=== PATIENT | male | born 1970 | race Caucasian/White ===

== ENCOUNTER 2016-06-08 10:42 | Day surgery (SDC) | payer OTHER ==
[2016-06-01 14:41] VITALS: BMI 40.0
[2016-06-08] MEDS ORDERED: BUPIVACAINE HCL/PF 2.5 MG/ML - 30 ML VIAL IJ ONE (10:47)
[2016-06-08] MEDS ORDERED: BUPIVACAINE HCL/PF 0.5% (5MG/ML) 10 ML VIAL ONE (10:59)
[2016-06-08] MEDS ORDERED: MIDAZOLAM HCL 2 MG/2 ML SINGLE DOSE VIAL ONE ×2 (11:14→15:22)
[2016-06-08] MEDS ORDERED: PROPOFOL 20 ML ONE ×2 (17:11→17:30)
[2016-06-08] MEDS ORDERED: ceFAZolin SODIUM 1 GM VIAL ONE ×2 (17:13)
[2016-06-08] MEDS ORDERED: oxyCODONE HCL 5 MG TABLET PO PRN (19:15)
[2016-06-08 20:19] VITALS: TEMP 97.9
[2016-06-08 20:24] VITALS: BP 137/68; PULSE 80
--- NOTE | 2016-06-10 11:40 | PATH ---
Surgical Pathology Report Patient Name: DEE MURRELL [facility]. Rec. #: [id number] /Age/Gender: 1970 (Age: 46) / M Account: [id number] Location: [facility] Taken: 06/08/2016 Received: 06/08/2016 Reported: 06/10/2016 Physicians: Charlie Garcia M.D. Specimen(s) Received RIGHT SHOULDER SHAVINGS Clinical History Right shoulder labral tear Final Diagnosis RIGHT SHOULDER, ARTHROSCOPIC SHAVINGS: FIBROCARTILAGE WITH MYXOID DEGENERATIVE CHANGES. Electronically Signed Rey Durbin M.D. Gross Description Received in formalin, labeled "right shoulder shavings," is a 1.0 x 0.6 x 0.2 cm aggregate of martínez soft tissue fragments. The formalin is filtered and the specimen is entirely submitted in one cassette. /06/09/201606/09/2016
--- NOTE | 2016-06-12 12:43 | OP ---
DATE OF OPERATION: 06/08/2016 PREOPERATIVE DIAGNOSIS: Right shoulder rotator cuff tear and labral tear. POSTOPERATIVE DIAGNOSIS: 1. Right shoulder superior labral anteroposterior (SLAP) tear type 2. 2. Right partial-thickness undersurface supraspinatus tear. 3. Right shoulder synovitis and labral tearing and subscapularis partial-thickness tear. 4. Right shoulder severe subacromial bursitis and anterior inferior spur with impingement. OPERATIVE PROCEDURES: 1. Right shoulder arthroscopy with repair of SLAP (superior labral anteroposterior) lesion. 2. Arthroscopic right shoulder extensive debridement, with debridement of rotator cuff tear and synovitis. 3. Right shoulder arthroscopic subacromial decompression and anterior inferior acromioplasty. SURGEON: Charlie Garcia MD BINDER LAYER: BRADLEY Wells ANESTHESIA: Regional. COMPLICATIONS: None. ESTIMATED BLOOD LOSS: Minimal. INDICATION FOR PROCEDURE: The patient is a 46-year-old male with the above findings, indicated for operative treatment. Risks, benefits and alternatives were discussed with the patient at length and proper informed consent was obtained. PROCEDURE: After proper identification of patient and correct operative site, patient brought to operating room and placed in the beach chair position. Regional anesthesia had been given by the anesthesiologist and adequate for procedure. All points of contact were well padded and in-line cervical positioning was maintained throughout the procedure. Right upper extremity was prepped and draped in the usual sterile fashion. Arthroscopy was then performed. Both posterior, lateral, and anterior superior portals were made. All portals were made in skin incision only and blunt dissection down to the joint capsule. The glenohumeral joint was observed first and found to have very mild chondromalacia. Significant fraying of the anterior and superior labrum was noted and this was debrided with mechanical shaver. A complete detachment of the superior labrum at the biceps anchor was noted from the 11 o'clock to the 2 o'clock position. Positive peel-off test was present. The biceps tendon itself was intact with mild fraying in the intraarticular portion, which was debrided. Extraarticular portion was brought into the joint and yellowish fluid came into the joint consistent with a biceps tenosynovitis, however, there was no tearing of the biceps tendon in the extraarticular portion that was able to be brought into the joint. Mild fraying at the most superior aspect of the extraarticular portion was debrided with mechanical shaver. There was no indication for a tenodesis or a tenotomy at this point due to the vast majority of the tendon being in good condition. The superior border of the subscapularis tendon had fraying and this was debrided but the tendon was intact. Moderate synovitis of the glenohumeral joint was noted and debrided with mechanical shaver. The rotator cuff was observed and there was tendinosis and partial-thickness tearing of the most anterior 1 cm. This was debrided with mechanical shaver and found to be less than 50% of the thickness of the rotator cuff. There was no evidence of full-thickness tear except for possible mild interval splitting, which could account for the MRI findings. The remainder of the supraspinatus and infraspinatus were completely intact. There were no loose bodies within the axillary pouch. At this point it was determined that a superior labral repair was necessary. Accessory portals were used to place Arthrex FiberStick sutures through the superior labrum both anterior and posterior to the biceps tendon insertion. These were then secured to the superior glenoid after preparing the glenoid with a shaver down to healthy bleeding bone to accommodate repair, and the labrum was repaired to the glenoid with PushLock anchors. Two total anchors were used, obtaining a secure repair with no further peel-off lesion present. Arthroscope was then introduced in the subacromial space. The space was so tight that it was almost impossible to fit the arthroscope into the anterior aspect of the space. A shaver and ArthroWand were used to clear severe bursitis from the subacromial space. A very large anterior inferior subacromial spur was noted. An anterior inferior acromioplasty was performed with a bur. This was able to achieve adequate space and prevent impingement. Mild fraying of the superior aspect of the rotator cuff was noted but no tearing was noted. The arthroscope was then removed from the joint and the joints were irrigated and incisions were closed with 2-0 nylon sutures. Sterile dressing, ice machine and sling were placed. The patient was reversed from any sedation, brought to the recovery room in stable condition. He tolerated the procedure well. Edgar Brambila, the medical assistant secretary, was integral throughout this procedure, and this procedure could not have been performed without a skilled arthroscopic operative medical assistant secretary. Due to the nature of arthroscopic labral repair, 3 or 4 arthroscopically skilled hands were necessary to complete the repair, where 1 person was holding an arthroscope in appropriate position and positioning it while the other person was performing the repair. The medical assistant secretary could not have been a surgical aide and no other assistants were available. Betsey ABREU/[id number]
== END 2016-06-08 20:15 | disposition home or self-care (01) ==
LOC: FASU 10:42
PROVIDERS: ATTEND Orthopaedic Surgery Hand Surgery
PROC: 0RNJ4ZZ Release Right Shoulder Joint, Percutaneous Endoscopic Approach (ICD-10-PCS; 2016-06-08)
PROC: 0RBJ4ZZ Excision of Right Shoulder Joint, Percutaneous Endoscopic Approach (ICD-10-PCS; 2016-06-08)
PROC: 0MM14ZZ Reattachment of Right Shoulder Bursa and Ligament, Percutaneous Endoscopic Approach (ICD-10-PCS; principal; 2016-06-08 12:30)
PROC: 0LB14ZZ Excision of Right Shoulder Tendon, Percutaneous Endoscopic Approach (ICD-10-PCS; 2016-06-08 12:30)
DX: M75.121 Complete rotator cuff tear or rupture of right shoulder, not specified as traumatic (principal); S43.431A Superior glenoid labrum lesion of right shoulder, initial encounter; X58.XXXA Exposure to other specified factors, initial encounter; Y93.9 Activity, unspecified; Y92.9 Unspecified place or not applicable; M65.811 Other synovitis and tenosynovitis, right shoulder; M75.51 Bursitis of right shoulder; M77.8 Other enthesopathies, not elsewhere classified; M75.41 Impingement syndrome of right shoulder
CPT/HCPCS: 88304-TC; 94760

== ENCOUNTER 2016-09-14 14:38 | Emergency (ER) | payer OTHER ==
[2016-09-14 15:04] VITALS: BP 141/84; PULSE 81; TEMP 98; BMI 37.1
[2016-09-14] MEDS ORDERED: ONDANSETRON *ODT* 4 MG TABLET ONE (15:14)
[2016-09-14] MEDS ORDERED: ONDANSETRON *ODT* 4 MG TABLET SL ONE (15:15)
[2016-09-14] MEDS ORDERED: diazePAM 5 MG TABLET PO ONE (15:15)
[2016-09-14] MEDS ORDERED: diazePAM 5 MG TABLET ONE (15:15)
--- NOTE | 2016-09-14 15:26 | PDOC ---
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 HISTORY OF PRESENT ILLNESS: The patient was stabilizing an individual's arm in the ER prior to blood draw when the individual began shaking. The patient states he had to reach slightly with his right arm and immediately his right shoulder went into spasm. He states he is currently nauseous. He states the same thing happened last week. REVIEW OF SYSTEMS: GENERAL/CONSTITUTIONAL: No fever/chills. No weakness. No weight change. MUSCULOSKELETAL: +right shoulder pain and spasm. No neck or back pain. SKIN: No rash or easy bruising. NEUROLOGIC: No headache, vertigo, loss of consciousness, or loss of sensation. PHYSICAL EXAM: VITAL_SIGNS: within normal limits GENERAL_APPEARANCE: alert, cooperative, obvious severe pain. the patient's face is erythematous and diaphoretic secondary to pain. Pt is holding his right elbow in flexed position against his chest. MENTAL_STATUS: speech clear, oriented X 3, responds appropriately to questions. NEURO: motor intact and sensory intact in injured extremity. EXTREMITIES: Right shoulder with muscle spasm and extreme TTP. SKIN: warm, dry, good color. Past History - Past Medical History Allergies/Adverse Reactions: Allergies Allergy/AdvReac Type Severity Reaction Status Date / Time meperidine HCl [From Demerol] Allergy Unknown Verified 09/14/16 14:56 Home Medications: Ambulatory Orders Naproxen [Naprosyn -] 500 mg PO BID PRN #14 tablet 05/07/16 Atorvastatin Calcium [Lipitor] 10 mg PO DAILY 06/01/16 Metformin HCl 500 mg PO DAILY 06/01/16 Paroxetine HCl 60 mg PO DAILY 06/01/16 Valsartan/Hydrochlorothiazide [Valsartan-Hctz 320-12.5 mg Tab] 1 tab PO DAILY Oxycodone HCl/Acetaminophen [Percocet 5-325 mg Tablet] 1 - 2 tab PO Q6H #8 tab MDD 6 09/14/16 Anemia: No Asthma: No Cancer: No Cardiac Disorders: No CVA: No COPD: No CHF: No Dementia: No Diabetes: No (borderline) GI Disorders: No Disorders: No HTN: Yes Hypercholesterolemia: Yes Liver Disease: No Seizures: No Thyroid Disease: No - Surgical History Abdominal Surgery: No Appendectomy: No Cardiac Surgery: No Cholecystectomy: No Lung Surgery: No Neurologic Surgery: No Orthopedic Surgery: No - Immunization History Immunization Up to Date: Yes - Psycho/Social/Smoking Cessation Hx Anxiety: No Suicidal Ideation: No Smoking History: Never smoked Have you smoked in the past 12 months: No Information on smoking cessation initiated: No Hx Alcohol Use: No Drug/Substance Use Hx: No Substance Use Type: None Hx Substance Use Treatment: No *Physical Exam - Vital Signs Last Vital Signs Temp Pulse Resp BP Pulse Ox 98.0 F 81 19 141/84 86 L 09/14/16 14:52 09/14/16 14:52 09/14/16 14:52 09/14/16 14:52 09/14/16 14:52 ED Treatment Course - Medications Given in the ED: ED Medications Discontinued Medications Generic Name Dose Route Start Last Admin Trade Name Dakotaq PRN Reason Stop Dose Admin Diazepam 10 mg 09/14/16 15:15 09/14/16 15:18 Valium - PO 09/14/16 15:16 10 mg ONCE ONE Administration Ondansetron HCl 4 mg 09/14/16 15:15 09/14/16 15:18 Zofran Odt - SL 09/14/16 15:16 4 mg ONCE ONE Administration Medical Decision Making - Medical Decision Making A/P: 46 y/o afebrile male with right shoulder spasm. Plan is as follows: 1. SL zofran 2. PO valium 3. Sling Pt still in pain. Ordered PO Percocet. Pt states he now feels much better but still with some pain. Will discharge to home with rx for percocet - informed him it may cause drowsiness. Suggested he ice as often as possible, use sling for comfort and f/u with his Orthopedic doctor as soon as possible. Pt was instructed to return to the ER with any worsening or concerning symptoms. The patient verbalizes understanding of all instructions, has no further questions and is awaiting discharge. *DC/Admit/Observation/Transfer Diagnosis at time of Disposition: Muscle spasm of right shoulder Right shoulder injury Qualifiers: Encounter type: subsequent encounter Qualified Code(s): S49.91XD - Unspecified injury of right shoulder and upper arm, subsequent encounter - Discharge Dispostion Disposition: HOME Condition at time of disposition: Improved - Prescriptions Prescriptions: Oxycodone HCl/Acetaminophen [Percocet 5-325 mg Tablet] 1 - 2 tab PO Q6H #8 tab MDD 6 - Referrals Referrals: STAFF,NOT ON [Primary Care Provider] - - Patient Instructions Printed Discharge Instructions: How to Use a Sling, DI for Back Spasm Additional Instructions: Discharge Instructions: -Continue to ice your shoulder for pain relief -Use sling as needed for comfort -Take percocet for pain; may cause drowsiness -Follow up with your Orthopedic doctor as soon as possible -Return to the ER with any worsening or concerning symptoms - Post Discharge Activity Work/School Note: Back to Work
[2016-09-14] MEDS ORDERED: OXYCODONE/APAP 5/325MG COMBO TABLET PO ONE (15:38)
[2016-09-14] MEDS ORDERED: OXYCODONE/APAP 5/325MG COMBO TABLET ONE (15:40)
== END 2016-09-14 16:28 | disposition home or self-care (01) ==
LOC: SUPCPDRO 14:38 → JERFT 14:38
DX: S49.81XA Other specified injuries of right shoulder and upper arm, initial encounter (principal); M62.838 Other muscle spasm; X50.0XXA Overexertion from strenuous movement or load, initial encounter; X50.9XXA Other and unspecified overexertion or strenuous movements or postures, initial encounter; Y93.F9 Activity, other caregiving; Y92.238 Other place in hospital as the place of occurrence of the external cause; Y99.0 Civilian activity done for income or pay
CPT/HCPCS: 99281-25

== ENCOUNTER 2018-05-25 12:14 | Emergency (ER) | payer OTHER ==
[2018-05-25] MEDS ORDERED: KETOROLAC TROMETHAMINE 30 MG/1 ML VIAL IM ONE (12:17)
--- NOTE | 2018-05-25 12:17 | PDOC ---
History of Present Illness - General Chief Complaint: Injury Stated Complaint: BACK PAIN Time Seen by Provider: 05/25/18 12:16 - History of Present Illness Initial Comments: 05/25/18 12:29 48 y/o PMH HTN, HLD, DM, right rotator cuff injury, presents to the emergency department status post a mechanical fall on . Patient was seated in a chair the floor was wet the chair slipped from under him he landed on his buttocks. He did not injure his buttock or lower back but is complaining of progressively worsening moderate to severe right upper back discomfort feels like a muscle is spasming No difficulty breathing no chest pain no weakness numbness bowel or bladder incontinence no other injury sustained. Past History - Past Medical History Allergies/Adverse Reactions: Allergies Allergy/AdvReac Type Severity Reaction Status Date / Time meperidine HCl [From Demerol] Allergy Unknown Verified 05/25/18 12:15 Home Medications: Ambulatory Orders Atorvastatin Calcium [Lipitor] 20 mg PO DAILY 06/01/16 Diazepam [Valium] 5 mg PO BID PRN 3 Days #6 tablet MDD 2 05/25/18 Methylprednisolone [Medrol Dose Benson] 4 mg PO ASDIR #21 tablet 05/25/18 Valsartan 40 mg PO HS 05/25/18 Anemia: No Asthma: No Cancer: No Cardiac Disorders: No CVA: No COPD: No CHF: No Dementia: No Diabetes: No (borderline) GI Disorders: No Disorders: No HTN: Yes Hypercholesterolemia: Yes Liver Disease: No Seizures: No Thyroid Disease: No - Surgical History Abdominal Surgery: No Appendectomy: No Cardiac Surgery: No Cholecystectomy: No Lung Surgery: No Neurologic Surgery: No Orthopedic Surgery: No - Immunization History Immunization Up to Date: Yes - Suicide/Smoking/Psychosocial Hx Smoking History: Never smoked Have you smoked in the past 12 months: No Hx Alcohol Use: No Drug/Substance Use Hx: No Substance Use Type: None Hx Substance Use Treatment: No Review of Systems - Review of Systems Comments:: 05/25/18 12:34 ROS: A complete review of 10 out of 10 review of systems is taken and is negative apart from what is previously mentioned below and in the HPI. *Physical Exam - Physical Exam Comments: 05/25/18 12:35 Vitals: Triage Vital signs reviewed General Appearance: no acute distress, well nourished well developed, Head: Atraumatic, Neck: Supple;No Nucal rigidity Chest Wall: Nontender Cardiac: Regular rate and rhythym, no murmurs, no rubs, no gallops, Lungs: Clear to auscultation bilateral, good air movement bilaterally, Extremities: Full range of motion to all extremities, no cyanosis, clubbing, or edema Musculoskeletal: No midline tenderness to palpation along the cervical thoracic and lumbar spine. Reproducible tenderness to palpation over the midthoracic to the right muscular in nature Skin: Warm and dry, no rashes or lesions, no rash, no petechiae Neuro: AOX3; Cranial Nerves 2-12 grossly intact, Strength intact to all extremities, Sensation intact to all extremities,gait normal Psych: normal mood, normal affect Medical Decision Making - Medical Decision Making 05/25/18 12:36 Severe upper back pain likely spasm we'll x-ray pain meds observe and reassess. 05/25/18 13:28 Reevaluation patient feels better. No acute fracture dislocation noted on x-ray We'll discharge Medrol Dosepak and three-day course of Valium Patient will follow up with orthopedics if no improvement in symptoms by Monday Findings, the need for follow-up and strict return instructions discussed with patient. *DC/Admit/Observation/Transfer Diagnosis at time of Disposition: Muscle strain - Discharge Dispostion Disposition: HOME Condition at time of disposition: Stable Decision to Admit order: No - Prescriptions Prescriptions: Diazepam [Valium] 5 mg PO BID PRN 3 Days #6 tablet MDD 2 PRN Reason: Back Pain Methylprednisolone [Medrol Dose Benson] 4 mg PO ASDIR #21 tablet - Referrals Referrals: Julia Barnes MD [Primary Care Provider] - Dereje Wilson MD [Staff Physician] - - Patient Instructions Printed Discharge Instructions: Thoracic Back Pain Additional Instructions: Ice affected area 20 minutes on 20 minutes off. Medrol Dosepak as prescribed. Valium as prescribed. Do not drive on this medication. Follow-up with your orthopedist or with if no improvement in symptoms. Return to ED for any severe worsening symptoms any weakness numbness or for any concerns. - Post Discharge Activity Forms/Work/School Notes: Back to Work
[2018-05-25] MEDS ORDERED: diazePAM 5 MG TABLET PO ONE (12:18)
[2018-05-25 12:20] VITALS: BP 153/100; PULSE 91; TEMP 98; BMI 40.3
[2018-05-25] MEDS ORDERED: diazePAM 5 MG TABLET ONE (12:23)
[2018-05-25] MEDS ORDERED: KETOROLAC TROMETHAMINE 30 MG/1 ML VIAL ONE (12:23)
== END 2018-05-25 13:45 | disposition home or self-care (01) ==
LOC: FER 12:14 → SUPCPDRO 12:14 → FER 13:45
PROC: 3E0233Z Introduction of Anti-inflammatory into Muscle, Percutaneous Approach (ICD-10-PCS; principal; 2018-05-25)
DX: S29.012A Strain of muscle and tendon of back wall of thorax, initial encounter (principal); X58.XXXA Exposure to other specified factors, initial encounter; Y93.89 Activity, other specified; Y92.89 Other specified places as the place of occurrence of the external cause; I10 Essential (primary) hypertension; E78.00 Pure hypercholesterolemia, unspecified; R73.03 Prediabetes
CPT/HCPCS: 71046-TC-FY; 72070-TC-FY; 99282-25

== ENCOUNTER 2019-02-28 13:34 | Emergency (ER) | payer OTHER ==
[2019-02-28 13:40] VITALS: BMI 35.2
[2019-02-28] MEDS ORDERED: ACETAMINOPHEN 1000 MG/100 ML VIAL (NON FORMULARY) IVPB ONE (13:42)
[2019-02-28] MEDS ORDERED: SODIUM CHLORIDE 1,000 ML IV STA (13:42)
[2019-02-28] MEDS ORDERED: ONDANSETRON 4 MG/2 ML VIAL IVPUSH ONE (13:42)
[2019-02-28] MEDS ORDERED: KETOROLAC TROMETHAMINE 30 MG/1 ML VIAL IVPUSH ONE (13:43)
--- NOTE | 2019-02-28 13:48 | PDOC ---
History of Present Illness - General Chief Complaint: Back Pain Stated Complaint: BACK PAIN Time Seen by Provider: 02/28/19 13:38 History Source: Patient Exam Limitations: No Limitations Past History - Travel Traveled outside of the country in the last 30 days: No Close contact w/someone who was outside of country & ill: No - Past Medical History Allergies/Adverse Reactions: Allergies Allergy/AdvReac Type Severity Reaction Status Date / Time meperidine HCl [From Demerol] Allergy Unknown Verified 02/28/19 13:36 Home Medications: Ambulatory Orders Atorvastatin Calcium [Lipitor] 20 mg PO DAILY 06/01/16 Diazepam [Valium] 5 mg PO BID PRN 3 Days #6 tablet MDD 2 05/25/18 Methylprednisolone [Medrol Dose Benson] 4 mg PO ASDIR #21 tablet 05/25/18 Valsartan 40 mg PO HS 05/25/18 Diazepam [Valium] 5 mg PO BID #10 tablet MDD 2 02/28/19 Diazepam [Valium] 5 mg PO BID #10 tablet MDD 2 02/28/19 Naproxen 500 mg PO BID #20 tablet 02/28/19 Naproxen [Naprosyn -] 500 mg PO BID #20 tablet 02/28/19 Anemia: No Asthma: No Cancer: No Cardiac Disorders: No CVA: No COPD: No CHF: No Dementia: No Diabetes: No (borderline) GI Disorders: No Disorders: No HTN: Yes Hypercholesterolemia: Yes Liver Disease: No Seizures: No Thyroid Disease: No - Surgical History Abdominal Surgery: No Appendectomy: No Cardiac Surgery: No Cholecystectomy: No Lung Surgery: No Neurologic Surgery: No Orthopedic Surgery: No - Immunization History Immunization Up to Date: Yes - Psycho Social/Smoking Cessation Hx Smoking History: Never smoked Have you smoked in the past 12 months: No Information on smoking cessation initiated: No Hx Alcohol Use: No Drug/Substance Use Hx: No Substance Use Type: None Hx Substance Use Treatment: No Review of Systems - Review of Systems Able to Perform ROS?: Yes Comments:: 02/28/19 14:05 CONSTITUTIONAL: Absent: fever, chills, diaphoresis, generalized weakness, malaise, loss of appetite HEENT: Absent: rhinorrhea, nasal congestion, throat pain, throat swelling, difficulty swallowing, mouth swelling, ear pain, eye pain, visual Changes CARDIOVASCULAR: Absent: chest pain, loss of consciousness, palpitations, irregular heart rate, peripheral edema RESPIRATORY: Absent: cough, shortness of breath, dyspnea with exertion, orthopnea, wheezing, stridor, hemoptysis GASTROINTESTINAL: Absent: abdominal pain, abdominal distension, nausea, vomiting, diarrhea, constipation, melena, hematochezia GENITOURINARY: Present: flank pain Absent: dysuria, frequency, urgency, hesitancy, hematuria, genital pain MUSCULOSKELETAL: Present: lower back pain Absent: myalgia, arthralgia, joint swelling SKIN: Absent: rash, itching, pallor HEMATOLOGIC/IMMUNOLOGIC: Absent: easy bleeding, easy bruising, lymphadenopathy, frequent infections ENDOCRINE: Absent: unexplained weight gain, unexplained weight loss, heat intolerance, cold intolerance NEUROLOGIC: Absent: headache, focal weakness or paresthesias, dizziness, unsteady gait, seizure, mental status changes, bladder or bowel incontinence PSYCHIATRIC: Absent: anxiety, depression, suicidal or homicidal ideation, hallucinations. Is the patient limited Brazilian proficient: No *Physical Exam - Vital Signs Last Vital Signs Temp Pulse Resp BP Pulse Ox 98.2 F 95 H 16 164/111 H 97 02/28/19 13:37 02/28/19 13:37 02/28/19 13:37 02/28/19 13:37 02/28/19 13:37 - Physical Exam Comments: 02/28/19 14:08 GENERAL: Well developed, well nourished. Awake and alert. Mild distress; appears uncomfortable. HEENT: Normocephalic, atraumatic. PERRLA, EOMI. No conjunctival pallor. Sclera are non- icteric. Moist mucous membranes. Oropharynx is clear. NECK: Supple. Full ROM. No JVD. Carotid pulses 2+ and symmetric, without bruits. No thyromegaly. No lymphadenopathy. CARDIOVASCULAR: Regular rate and rhythm. No murmurs, rubs, or gallops. Distal pulses are 2+ and symmetric. PULMONARY: No evidence of respiratory distress. Lungs clear to auscultation bilaterally. No wheezing, rales or rhonchi. ABDOMINAL: Soft. Non-tender. Non-distended. No rebound or guarding. No organomegaly. Normoactive bowel sounds. MUSCULOSKELETAL Normal range of motion at all joints. No bony deformities or tenderness. (+) R CVA tenderness. EXTREMITIES: No cyanosis. No clubbing. No edema. No calf tenderness. SKIN: Warm and dry. Normal capillary refill. No rashes. No jaundice. NEUROLOGICAL: Alert, awake, appropriate. Cranial nerves 2-12 intact. No deficits to light touch and temperature in face, upper extremities and lower extremities. No motor deficits in the in face, upper extremities and lower extremities. Normoreflexic in the upper and lower extremities. Normal speech. Toes are down- going bilaterally. Gait is normal without ataxia. PSYCHIATRIC: Cooperative. Good eye contact. Appropriate mood and affect. ED Treatment Course - LABORATORY CBC & Chemistry Diagram: 02/28/19 14:00 02/28/19 14:00 Medical Decision Making - Medical Decision Making 02/28/19 14:09 The patient is a 48-year-old male past medical history of HTN, HLD, kidney stones, right rotator cuff repair, chronic low back pain, presents to the ER today for right-sided back pain for 3 days. The patient states that the pain is intermittent and colicky. He states that the pain does come it is sharp in nature. He states this does not feel like his usual back pain as he cannot massage the area. He states that it does get worse with movement denies inciting factors including heavy lifting, trauma. Denies fevers, chills, urinary symptoms, nausea, vomiting, chest pain and lightheadedness. A/P: Right flank pain On exam patient with right CVA tenderness. Also with some right lower abdominal pain, patient states that this is radiating from the back pain/flank pain. Differential diagnosis includes but is not limited to: Kidney stone, muscle spasms Labs, urine and CTAP renal to rule out kidney stones ordered EKG ordered After meth, Toradol and fluids given Reevaluate 02/28/19 17:16 EKG: Rate 78 bpm NSR, normal intervals and axis. No acute ST-T wave changes. Scan is negative for kidney stones Most likely upper back spasm. Toradol and aftermath did help with the symptoms. Valium and lidocaine patch added on. Patient denies saddle anesthesia and bladder bowel incontinence. Patient is neurologically intact with no focal findings. Discharge home with PCP follow-up I discussed the physical exam findings, ancillary test results and final diagnoses with the patient. I answered all of the patient's questions. The patient was satisfied with the care received and felt comfortable with the discharge plan and treatment plan. The Patient agrees to follow up with the primary care physician/specialist within 24-72 hours. Return precautions were given. Discharge - Discharge Information Problems reviewed: Yes Clinical Impression/Diagnosis: Low back pain Qualifiers: Chronicity: acute Back pain laterality: right Sciatica presence: without sciatica Qualified Code(s): M54.5 - Low back pain Condition: Good Disposition: HOME - Admission No - Additional Discharge Information Prescriptions: Diazepam [Valium] 5 mg PO BID #10 tablet MDD 2 Diazepam [Valium] 5 mg PO BID #10 tablet MDD 2 Naproxen 500 mg PO BID #20 tablet Naproxen [Naprosyn -] 500 mg PO BID #20 tablet - Follow up/Referral Referrals: Julia Barnes MD [Primary Care Provider] - - Patient Discharge Instructions Patient Printed Discharge Instructions: DI for Low Back Pain Additional Instructions: You have low back pain due to a muscle spasm. Please take naproxen as directed. Take the Valium as directed. Do not drive after taking this medication as it may make you sleepy. You may use warm compresses on your back to help with her symptoms. Please follow-up with your primary care doctor. If your symptoms do not resolve in 3-5 days, follow-up with orthopedics. A referral has been provided for you. Return to the emergency department if you have worsening back pain, bladder or bowel incontinence, numbness and tingling in her legs, changes in the way you walk, or any new or worsening symptoms. - Post Discharge Activity Work/Back to School Note: Back to Work
[2019-02-28] MEDS ORDERED: ONDANSETRON 4 MG/2 ML VIAL ONE (13:50)
[2019-02-28] MEDS ORDERED: KETOROLAC TROMETHAMINE 30 MG/1 ML VIAL ONE (13:50)
[2019-02-28] MEDS ORDERED: ACETAMINOPHEN INJECTION 100 ML IVPB ONE (13:53)
[2019-02-28] MEDS ORDERED: LIDOCAINE 5% TOPICAL PATCH TP ONE (14:29)
[2019-02-28] MEDS ORDERED: diazePAM CARPU-JECT 10 MG/2 ML DISP.SYRIN IVPUSH ONE (14:29)
[2019-02-28] MEDS ORDERED: diazePAM CARPU-JECT 10 MG/2 ML DISP.SYRIN ONE (14:35)
[2019-02-28] MEDS ORDERED: LIDOCAINE 5% TOPICAL PATCH ONE (14:36)
[2019-02-28 15:10] LABS: BASO % 0.6 % (0-2.0); EOS % 3.1 % (0-4.5); LYMPH % 37.5 % (8-40); MCHC 33.4 g/dl (32.0-35.9); MEAN CELL VOLUME 95.8 fl (80-96); MEAN PLT VOLUME 9.5 fl (7.5-11.1); MONO % 5.6 % (3.8-10.2); NEUT % 53.2 % (42.8-82.8); PLATELET COUNT 174 K/MM3 (134-434); RBC 5.01 M/mm3 (4.00-5.60); WHITE BLOOD COUNT 7.3 K/mm3 (4.0-10.0)
[2019-02-28 15:14] LABS: URINE APPEARANCE CLEAR; URINE BILIRUBIN NEGATIVE (NEGATIVE); URINE COLOR YELLOW; URINE GLUCOSE (UA) NEGATIVE (NEGATIVE); URINE KETONE NEGATIVE (NEGATIVE); URINE LEUK ESTERASE NEGATIVE (NEGATIVE); URINE NITRITE NEGATIVE (NEGATIVE); URINE PROTEIN NEGATIVE (NEGATIVE); URINE UROBILINOGEN 0.2 mg/dL (0.2-1.0)
[2019-02-28 15:18] LABS: INR 1.07 (0.83-1.09); PROTHROMBIN TIME (PATIENT) 12.6 SEC (9.7-13.0)
[2019-02-28 15:27] VITALS: BP 146/81; PULSE 81; TEMP 98.3
[2019-02-28 15:31] LABS: BILIRUBIN,TOTAL 0.6 mg/dL (0.2-1); BLOOD UREA NITROGEN 17.3 mg/dL (7-18); CALCIUM 9.8 mg/dL (8.5-10.1); CREATININE 0.7 mg/dL (0.55-1.3); POTASSIUM 4.2 mmol/L (3.5-5.1); TOT PROT 7.5 g/dl (6.4-8.2)
--- NOTE | 2019-03-01 14:33 | EKG ---
Test Reason : Blood Pressure : / mmHG Vent. Rate : 078 BPM Atrial Rate : 078 BPM P-R Int : 142 ms QRS Dur : 088 ms QT Int : 352 ms P-R-T Axes : 017 -28 006 degrees QTc Int : 401 ms NORMAL SINUS RHYTHM MINIMAL VOLTAGE CRITERIA FOR LVH, MAY BE NORMAL VARIANT SEPTAL INFARCT , AGE UNDETERMINED LEFT AXIS DEVIATION ABNORMAL ECG NO PREVIOUS ECGS AVAILABLE Confirmed by ASHTYN ZAMORA MD ([id number]) on 03/01/2019 2:33:33 PM Referred By: Confirmed By:ASHTYN ZAMORA MD
== END 2019-02-28 15:56 | disposition home or self-care (01) ==
LOC: JER 13:34 → JERFT 13:34
PROC: 3E0337Z Introduction of Electrolytic and Water Balance Substance into Peripheral Vein, Percutaneous Approach (ICD-10-PCS; principal; 2019-02-28)
PROC: 3E033NZ Introduction of Analgesics, Hypnotics, Sedatives into Peripheral Vein, Percutaneous Approach (ICD-10-PCS; 2019-02-28)
PROC: 3E0333Z Introduction of Anti-inflammatory into Peripheral Vein, Percutaneous Approach (ICD-10-PCS; 2019-02-28)
PROC: 3E033NZ Introduction of Analgesics, Hypnotics, Sedatives into Peripheral Vein, Percutaneous Approach (ICD-10-PCS; 2019-02-28)
PROC: 3E033GC Introduction of Other Therapeutic Substance into Peripheral Vein, Percutaneous Approach (ICD-10-PCS; 2019-02-28)
DX: M54.5 Low back pain (principal); I10 Essential (primary) hypertension; E78.5 Hyperlipidemia, unspecified; E78.00 Pure hypercholesterolemia, unspecified; E11.9 Type 2 diabetes mellitus without complications; Z87.442 Personal history of urinary calculi; Z88.5 Allergy status to narcotic agent
CPT/HCPCS: 36415; 74176-TC; 80053; 81003; 85025; 85610; 87086; 93005; 93010; 99282-25; J0131; J7030

== ENCOUNTER 2021-11-05 15:20 | Inpatient (IN) | payer BC ==
[2021-11-05] MEDS ORDERED: LIDOCAINE 5% TOPICAL PATCH TP ONE (16:48)
[2021-11-05] MEDS ORDERED: ACETAMINOPHEN 1000 MG/100 ML BAG IVPB ONE (16:48)
[2021-11-05 16:57] LABS: BASO % 0.9 % (0-2.0); EOS % 2.4 % (0-4.5); HEMATOCRIT 44.7 % (35.4-49); HEMOGLOBIN 15.2 GM/dL (11.7-16.9); LYMPH % 35.1 % (8-40); MCH 32.2 pg (25.7-33.7); MCHC 34.1 g/dl (32.0-35.9); MEAN CELL VOLUME 94.5 fl (80-96); MEAN PLT VOLUME 8.6 fl (7.5-11.1); MONO % 6.5 % (3.8-10.2); NEUT % 55.1 % (42.8-82.8); PLATELET COUNT 202 10^3/uL (134-434); RBC 4.73 M/mm3 (4.00-5.60); RDW 12.9 % (11.9-15.9)
[2021-11-05 17:03] LABS: INR 1.12 (0.83-1.09); PROTHROMBIN TIME (PATIENT) 12.9 SEC (9.7-13.0)
[2021-11-05 17:22] LABS: CHLORIDE 110 mmol/L (98-107); SODIUM 144 mmol/L (136-145)
[2021-11-05 17:24] LABS: CALCIUM 8.9 mg/dL (8.5-10.1)
[2021-11-05 17:25] LABS: ALBUMIN 3.3 g/dl (3.4-5.0); ANION GAP 4 MMOL/L (8-16); BLOOD UREA NITROGEN 15.5 mg/dL (7-18); CO2 30 mmol/L (21-32); GLUCOSE,RANDOM 115 mg/dL (74-106); MAGNESIUM 2.2 mg/dL (1.8-2.4)
[2021-11-05] MEDS ORDERED: ACETAMINOPHEN INJECTION 100 ML IVPB ONE (17:26)
[2021-11-05] MEDS ORDERED: LIDOCAINE 5% TOPICAL PATCH ONE (17:27)
[2021-11-05 17:28] LABS: CREATININE 0.9 mg/dL (0.55-1.3); SGOT/AST 34 U/L (15-37); SGPT/ALT 34 U/L (13-61)
[2021-11-05 17:30] LABS: BILIRUBIN,TOTAL 0.5 mg/dL (0.2-1); TOT PROT 6.2 g/dl (6.4-8.2)
[2021-11-05 17:31] LABS: ALK PHOS 66 U/L (45-117)
[2021-11-05 17:55] LABS: ERYTHROCYTE SEDIMENTATION RATE 7 mm/hr (0-20)
[2021-11-05] MEDS ORDERED: morphine CARPU-JECT 4 MG/1 ML DISP.SYRIN IVPUSH ONE (18:29)
[2021-11-05] MEDS ORDERED: morphine SULFATE 4 MG/ML VIAL ONE (18:35)
[2021-11-05] MEDS ORDERED: SODIUM CHLORIDE 1,000 ML IV ONE (20:21)
[2021-11-05] MEDS ORDERED: IMMUN GLOB IVPB ONE (20:45)
[2021-11-05] MEDS ORDERED: IGA IVPB ONE (20:45)
[2021-11-05] MEDS ORDERED: PRO IVPB ONE (20:45)
[2021-11-05 21:55] LABS: VENOUS BASE EXCESS -0.7 mmol/L (-2-2); VENOUS O2 SATURATION 86.1 % (70-80); VENOUS PCO2 42.6 mmHg (38-52); VENOUS PH 7.379 (7.310-7.410)
[2021-11-05] MEDS ORDERED: ACETAMINOPHEN 1000 MG/100 ML BAG IVPB PRN (22:39)
[2021-11-05] MEDS ORDERED: MELATONIN 5 MG TABLETS PO PRN (22:40)
[2021-11-05] MEDS ORDERED: PROCHLORPERAZINE INJECTION 10 MG/2 ML VIAL IVPB PRN (23:02)
[2021-11-06] MEDS: NAPROXEN 500 MG TABLET PO SCH ×3 (01:21→22:39)
[2021-11-06] MEDS ORDERED: LIDOCAINE PATCH REMOVAL MC SCH (05:00)
[2021-11-06] MEDS ORDERED: DEXTROSE 5%-NORMAL SALINE 1,000 ML IV SCH (05:45)
[2021-11-06 08:08] LABS: BASO % 0.8 % (0-2.0); EOS % 2.2 % (0-4.5); HEMATOCRIT 39.8 % (35.4-49); HEMOGLOBIN 13.6 GM/dL (11.7-16.9); LYMPH % 38.4 % (8-40); MCH 32.5 pg (25.7-33.7); MCHC 34.1 g/dl (32.0-35.9); MEAN CELL VOLUME 95.3 fl (80-96); MEAN PLT VOLUME 8.7 fl (7.5-11.1); MONO % 6.7 % (3.8-10.2); NEUT % 51.9 % (42.8-82.8); PLATELET COUNT 153 10^3/uL (134-434); RBC 4.18 M/mm3 (4.00-5.60); RDW 12.8 % (11.9-15.9); WHITE BLOOD COUNT 5.1 K/mm3 (4.0-10.0)
[2021-11-06 08:24] LABS: BLOOD UREA NITROGEN 15.5 mg/dL (7-18); CALCIUM 8.4 mg/dL (8.5-10.1)
[2021-11-06 08:25] LABS: CREATININE 0.7 mg/dL (0.55-1.3)
[2021-11-06 08:27] LABS: BILIRUBIN,TOTAL 0.7 mg/dL (0.2-1); TOT PROT 5.9 g/dl (6.4-8.2)
[2021-11-06 08:28] LABS: PHOSPHOROUS 4.2 mg/dL (2.5-4.9)
[2021-11-06 08:53] LABS: INR 1.09 (0.83-1.09); PROTHROMBIN TIME (PATIENT) 12.5 SEC (9.7-13.0)
[2021-11-06 08:56] LABS: ACTIVATED PTT 28.9 SECONDS (25.2-36.5)
[2021-11-06] MEDS ORDERED: PATIENT'S OWN MEDICATION (NON-FORMULARY) (Bupropion Hcl [Bupropion Xl] 300 MG Tab.Er.24h) PO SCH (10:00)
[2021-11-06] MEDS: MUPIROCIN 2% TOPICAL OINTMENT FOR DECOLONIZATION NS SCH ×2 (11:00→22:30)
[2021-11-06] MEDS: DEXTROSE 5%-0.45% SALINE 1,000 ML IV SCH (11:35)
[2021-11-06] MEDS: VILAZODONE HYDROCHLORIDE 20 MG TABLET PO SCH ×2 (13:16→18:45)
[2021-11-06] MEDS ORDERED: NAPROXEN 500 MG TABLET PO PRN (18:47)
[2021-11-06] MEDS ORDERED: IMMUNE GLOBULIN 40 GM IVPB SCH (19:00)
[2021-11-06] MEDS: IMMUNE GLOBULIN (IgG) 20 GM VIAL IVPB SCH (20:50)
[2021-11-06 21:03] LABS: PH,URINE 5.5 (5.0-8.0); URINE APPEARANCE CLEAR; URINE BILIRUBIN NEGATIVE (NEGATIVE); URINE COLOR YELLOW; URINE GLUCOSE (UA) NEGATIVE (NEGATIVE); URINE KETONE NEGATIVE (NEGATIVE); URINE LEUK ESTERASE NEGATIVE (NEGATIVE); URINE NITRITE NEGATIVE (NEGATIVE); URINE PROTEIN NEGATIVE (NEGATIVE); URINE UROBILINOGEN 0.2 mg/dL (0.2-1.0)
[2021-11-06] MEDS: CHLORHEXIDINE GLUCONATE 4% CLEANSER FOR DECOLONIZATION TP SCH (22:30)
[2021-11-07] MEDS: DEXTROSE 5%-0.45% SALINE 1,000 ML IV SCH ×2 (04:25→12:00)
[2021-11-07 07:46] LABS: HEMOGLOBIN 14.3 GM/dL (11.7-16.9); MCHC 34.9 g/dl (32.0-35.9); MEAN CELL VOLUME 94.7 fl (80-96); MEAN PLT VOLUME 8.2 fl (7.5-11.1); PLATELET COUNT 146 10^3/uL (134-434); RBC 4.33 M/mm3 (4.00-5.60); RDW 12.8 % (11.9-15.9); WHITE BLOOD COUNT 4.2 K/mm3 (4.0-10.0)
[2021-11-07] MEDS: VILAZODONE HYDROCHLORIDE 20 MG TABLET PO SCH (08:00)
[2021-11-07 08:33] LABS: CALCIUM 8.5 mg/dL (8.5-10.1)
[2021-11-07 08:34] LABS: BLOOD UREA NITROGEN 11.4 mg/dL (7-18); MAGNESIUM 2.1 mg/dL (1.8-2.4)
[2021-11-07 08:37] LABS: CREATININE 0.8 mg/dL (0.55-1.3); PHOSPHOROUS 3.9 mg/dL (2.5-4.9)
[2021-11-07] MEDS: MUPIROCIN 2% TOPICAL OINTMENT FOR DECOLONIZATION NS SCH ×2 (10:36→21:23)
[2021-11-07] MEDS: NAPROXEN 500 MG TABLET PO SCH ×2 (10:36→21:23)
[2021-11-07 12:35] LABS: HIV INTERPRETATION NEGATIVE (NEGATIVE)
[2021-11-07] MEDS ORDERED: ACETAMINOPHEN 500 MG TABLET (FP) PO PRN (15:56)
[2021-11-07] MEDS ORDERED: VILAZODONE HYDROCHLORIDE 20 MG TABLET PO SCH (18:00)
[2021-11-07] MEDS ORDERED: DOCUSATE SODIUM 100 MG CAPSULE (FP) PO PRN (19:49)
[2021-11-07] MEDS ORDERED: SENNOSIDES 8.6MG TABLET (FP) PO PRN (19:49)
[2021-11-07] MEDS: IMMUNE GLOBULIN (IgG) 20 GM VIAL IVPB SCH (21:22)
[2021-11-07] MEDS: CHLORHEXIDINE GLUCONATE 4% CLEANSER FOR DECOLONIZATION TP SCH (21:23)
[2021-11-08 07:56] LABS: BASO % 0.9 % (0-2.0); EOS % 2.9 % (0-4.5); HEMATOCRIT 42.2 % (35.4-49); HEMOGLOBIN 14.5 GM/dL (11.7-16.9); LYMPH % 28.9 % (8-40); MCH 32.7 pg (25.7-33.7); MCHC 34.4 g/dl (32.0-35.9); MEAN CELL VOLUME 94.9 fl (80-96); MEAN PLT VOLUME 8.2 fl (7.5-11.1); MONO % 8.6 % (3.8-10.2); NEUT % 58.7 % (42.8-82.8); PLATELET COUNT 140 10^3/uL (134-434); RBC 4.45 M/mm3 (4.00-5.60)
[2021-11-08 08:32] LABS: ALBUMIN 3.2 g/dl (3.4-5.0); CALCIUM 8.7 mg/dL (8.5-10.1); PHOSPHOROUS 3.6 mg/dL (2.5-4.9)
[2021-11-08 08:33] LABS: CREATININE 0.8 mg/dL (0.55-1.3); MAGNESIUM 2.1 mg/dL (1.8-2.4)
[2021-11-08 08:34] LABS: BILIRUBIN,TOTAL 0.6 mg/dL (0.2-1); TOT PROT 6.9 g/dl (6.4-8.2)
[2021-11-08] MEDS: NAPROXEN 500 MG TABLET PO SCH ×2 (09:50→23:16)
[2021-11-08] MEDS ORDERED: POLYETHYLENE GLYCOL (HEALTHYLAX) 3350 17 GM PACKET PO SCH (10:15)
[2021-11-08] MEDS: MUPIROCIN 2% TOPICAL OINTMENT FOR DECOLONIZATION NS SCH (12:49)
[2021-11-08] MEDS ORDERED: DOCUSATE SODIUM 100 MG CAPSULE (FP) PO PRN (15:16)
[2021-11-08 16:11] LABS: BF GLUCOSE (CSF ONLY) 59 mg/dL (40-70)
[2021-11-08 17:04] LABS: CSF APPEARANCE CLEAR (CLEAR); CSF COLOR COLORLESS (COLORLESS); CSF WBC 0 mm3 (0-5)
[2021-11-08] MEDS ORDERED: IMMUNE GLOBULIN (IgG) 20 GM VIAL IVPB SCH (20:32)
[2021-11-08] MEDS: ACETAMINOPHEN 500 MG TABLET (FP) PO PRN (21:25)
[2021-11-08] MEDS: VILAZODONE HYDROCHLORIDE 20 MG TABLET PO SCH (21:27)
[2021-11-08] MEDS: SENNOSIDES 8.6MG TABLET (FP) PO PRN (21:50)
[2021-11-08] MEDS ORDERED: CHLORHEXIDINE GLUCONATE 4% CLEANSER FOR DECOLONIZATION TP SCH (22:00)
[2021-11-08] MEDS ORDERED: MUPIROCIN 2% TOPICAL OINTMENT FOR DECOLONIZATION NS SCH (22:00)
[2021-11-09] MEDS: ACETAMINOPHEN 500 MG TABLET (FP) PO PRN (08:17)
[2021-11-09] MEDS: POLYETHYLENE GLYCOL (HEALTHYLAX) 3350 17 GM PACKET PO SCH (09:15)
[2021-11-09] MEDS: NAPROXEN 500 MG TABLET PO SCH ×2 (09:16→21:38)
[2021-11-09 11:01] LABS: HEMATOCRIT 41.4 % (35.4-49); HEMOGLOBIN 14.4 GM/dL (11.7-16.9); MCH 32.6 pg (25.7-33.7); MCHC 34.9 g/dl (32.0-35.9); MEAN CELL VOLUME 93.6 fl (80-96); MEAN PLT VOLUME 8.4 fl (7.5-11.1); PLATELET COUNT 150 10^3/uL (134-434); RBC 4.42 M/mm3 (4.00-5.60); RDW 12.7 % (11.9-15.9); WHITE BLOOD COUNT 3.9 K/mm3 (4.0-10.0)
[2021-11-09] MEDS: oxyCODONE HCL 5 MG TABLET PO PRN ×2 (11:39→21:40)
[2021-11-09 11:51] LABS: ALBUMIN 3.3 g/dl (3.4-5.0); MAGNESIUM 2.2 mg/dL (1.8-2.4)
[2021-11-09 11:53] LABS: BLOOD UREA NITROGEN 10.8 mg/dL (7-18)
[2021-11-09 11:54] LABS: PHOSPHOROUS 2.5 mg/dL (2.5-4.9)
[2021-11-09 11:55] LABS: BILIRUBIN,TOTAL 0.5 mg/dL (0.2-1)
[2021-11-09 11:56] LABS: CREATININE 0.8 mg/dL (0.55-1.3); TOT PROT 7.3 g/dl (6.4-8.2)
[2021-11-09] MEDS: GABAPENTIN 100 MG CAPSULE PO SCH ×2 (13:21→21:38)
[2021-11-09] MEDS: VILAZODONE HYDROCHLORIDE 20 MG TABLET PO SCH (17:53)
[2021-11-09] MEDS: HEPARIN NA (PORCINE) 5,000 UNITS/ML 1ML VIAL SQ SCH (21:41)
[2021-11-10] MEDS: HEPARIN NA (PORCINE) 5,000 UNITS/ML 1ML VIAL SQ SCH ×3 (05:38→22:21)
[2021-11-10] MEDS: GABAPENTIN 100 MG CAPSULE PO SCH ×3 (05:38→22:20)
[2021-11-10] MEDS: oxyCODONE HCL 5 MG TABLET PO PRN ×3 (05:41→18:07)
[2021-11-10] MEDS ORDERED: IMMUN GLOB IVPB ONE (11:00)
[2021-11-10] MEDS ORDERED: PRO IVPB ONE (11:00)
[2021-11-10] MEDS ORDERED: IGA IVPB ONE (11:00)
[2021-11-10] MEDS: NAPROXEN 500 MG TABLET PO SCH ×2 (11:05→22:20)
[2021-11-10] MEDS: POLYETHYLENE GLYCOL (HEALTHYLAX) 3350 17 GM PACKET PO SCH (11:06)
[2021-11-10] MEDS ORDERED: hydrALAZINE HCL 20 MG/ML VIAL IVPUSH ONE (17:56)
[2021-11-10] MEDS: amLODIPine BESYLATE 10 MG TABLET (FP) PO SCH (18:08)
[2021-11-10] MEDS: VILAZODONE HYDROCHLORIDE 20 MG TABLET PO SCH (18:08)
[2021-11-10] MEDS ORDERED: hydrALAZINE HCL 10 MG TABLET PO ONE (21:42)
[2021-11-10] MEDS: SENNOSIDES 8.6MG TABLET (FP) PO PRN (22:20)
[2021-11-11] MEDS: GABAPENTIN 100 MG CAPSULE PO SCH ×3 (05:52→22:17)
[2021-11-11] MEDS: HEPARIN NA (PORCINE) 5,000 UNITS/ML 1ML VIAL SQ SCH ×3 (05:52→22:17)
[2021-11-11] MEDS: NAPROXEN 500 MG TABLET PO SCH ×2 (10:36→22:19)
[2021-11-11] MEDS: oxyCODONE HCL 5 MG TABLET PO PRN ×2 (10:36→16:28)
[2021-11-11] MEDS: amLODIPine BESYLATE 10 MG TABLET (FP) PO SCH (10:36)
[2021-11-11] MEDS: POLYETHYLENE GLYCOL (HEALTHYLAX) 3350 17 GM PACKET PO SCH (10:37)
[2021-11-11 10:57] LABS: BASO % 0.6 % (0-2.0); EOS % 2.6 % (0-4.5); HEMATOCRIT 45.6 % (35.4-49); HEMOGLOBIN 16.2 GM/dL (11.7-16.9); LYMPH % 44.3 % (8-40); MCH 33.2 pg (25.7-33.7); MCHC 35.5 g/dl (32.0-35.9); MEAN CELL VOLUME 93.5 fl (80-96); MEAN PLT VOLUME 8.2 fl (7.5-11.1); MONO % 7.2 % (3.8-10.2); NEUT % 45.3 % (42.8-82.8); PLATELET COUNT 170 10^3/uL (134-434); RBC 4.88 M/mm3 (4.00-5.60); RDW 12.6 % (11.9-15.9); WHITE BLOOD COUNT 5.6 K/mm3 (4.0-10.0)
[2021-11-11 11:26] LABS: BLOOD UREA NITROGEN 12.9 mg/dL (7-18); MAGNESIUM 2.1 mg/dL (1.8-2.4)
[2021-11-11 11:29] LABS: CALCIUM 9.1 mg/dL (8.5-10.1)
[2021-11-11 11:30] LABS: PHOSPHOROUS 3.4 mg/dL (2.5-4.9)
[2021-11-11 11:31] LABS: ALBUMIN 3.4 g/dl (3.4-5.0); BILIRUBIN,TOTAL 0.7 mg/dL (0.2-1); TOT PROT 7.9 g/dl (6.4-8.2)
[2021-11-11 11:33] LABS: CREATININE 0.9 mg/dL (0.55-1.3)
[2021-11-11] MEDS: CYCLOBENZAPRINE HCL 5 MG TABLET PO PRN ×2 (12:56→22:17)
[2021-11-11] MEDS: ACETAMINOPHEN 500 MG TABLET (FP) PO PRN (12:57)
[2021-11-11 14:54] VITALS: BMI 35.2
[2021-11-11] MEDS: VILAZODONE HYDROCHLORIDE 20 MG TABLET PO SCH (19:01)
[2021-11-11] MEDS: SENNOSIDES 8.6MG TABLET (FP) PO PRN (22:17)
[2021-11-12] MEDS: HEPARIN NA (PORCINE) 5,000 UNITS/ML 1ML VIAL SQ SCH ×3 (06:28→21:59)
[2021-11-12] MEDS: GABAPENTIN 100 MG CAPSULE PO SCH ×3 (06:28→21:58)
[2021-11-12] MEDS: ACETAMINOPHEN 500 MG TABLET (FP) PO PRN ×2 (06:28→18:29)
[2021-11-12] MEDS: CYCLOBENZAPRINE HCL 5 MG TABLET PO PRN ×3 (06:28→21:59)
[2021-11-12] MEDS: amLODIPine BESYLATE 10 MG TABLET (FP) PO SCH (09:15)
[2021-11-12] MEDS: NAPROXEN 500 MG TABLET PO SCH ×2 (09:15→21:59)
[2021-11-12] MEDS: oxyCODONE HCL 5 MG TABLET PO PRN ×2 (09:15→15:22)
[2021-11-12] MEDS: POLYETHYLENE GLYCOL (HEALTHYLAX) 3350 17 GM PACKET PO SCH (09:16)
[2021-11-12] MEDS: VILAZODONE HYDROCHLORIDE 20 MG TABLET PO SCH (18:29)
[2021-11-12 19:18] VITALS: BP 120/81; PULSE 77; TEMP 98.3
== END 2021-11-12 22:28 | DRG 96 ==
LOC: JER 15:20 → JERBED 21:49 → JICU 11-06 00:08 → J5S 11-08 15:17
PROVIDERS: ADMIT Internal Medicine Pulmonary Disease; ATTEND Internal Medicine
PROC: 30233S1 Transfusion of Nonautologous Globulin into Peripheral Vein, Percutaneous Approach (ICD-10-PCS; 2021-11-05)
PROC: 009U3ZX Drainage of Spinal Canal, Percutaneous Approach, Diagnostic (ICD-10-PCS; 2021-11-08)
PROC: 009U3ZX Drainage of Spinal Canal, Percutaneous Approach, Diagnostic (ICD-10-PCS; principal; 2021-11-11)
DX: G61.0 Guillain-Barre syndrome (principal); G47.33 Obstructive sleep apnea (adult) (pediatric); F32.A Depression, unspecified; I10 Essential (primary) hypertension; M54.2 Cervicalgia; E78.5 Hyperlipidemia, unspecified; K59.00 Constipation, unspecified
CPT/HCPCS: 36415; 62272; 70450-TC; 71045-TC-FY; 72125-TC; 74019-TC-FY; 80048; 80053; 81003; 82803; 82945; 83605; 83735; 84100; 84157; 84484; 85025; 85027; 85610; 85651; 85730; 86140; 86625; 87040; 87070; 87205; 87389; 93005; 93010; 94010; 97116-GP; 97162-GP; 99285-25; C9803-CS; J1459; J1561; J1644; U0003; U0005

== ENCOUNTER 2022-05-03 15:50 | Inpatient (IN) | payer BC ==
[2022-05-03] MEDS ORDERED: IMMUNE GLOBULIN IVPB SCH (17:45)
[2022-05-03] MEDS ORDERED: [UNRECOGNIZED DRUG - OTHER] IVPB SCH (17:45)
[2022-05-03 18:11] LABS: BASO % 1.2 % (0-2.0); EOS % 0.7 % (0-4.5); HEMATOCRIT 39.1 % (35.4-49); HEMOGLOBIN 13.2 GM/dL (11.7-16.9); LYMPH % 26.7 % (8-40); MCH 31.4 pg (25.7-33.7); MCHC 33.9 g/dl (32.0-35.9); MEAN CELL VOLUME 92.6 fl (80-96); MEAN PLT VOLUME 7.8 fl (7.5-11.1); MONO % 15.4 % (3.8-10.2); PLATELET COUNT 137 10^3/uL (134-434); RBC 4.22 M/mm3 (4.00-5.60); RDW 15.7 % (11.9-15.9); WHITE BLOOD COUNT 3.8 K/mm3 (4.0-10.0)
[2022-05-03 18:31] LABS: ALBUMIN 3.8 g/dl (3.4-5.0); BLOOD UREA NITROGEN 9.5 mg/dL (7-18); CALCIUM 8.9 mg/dL (8.5-10.1)
[2022-05-03 18:34] LABS: CREATININE 0.9 mg/dL (0.55-1.3)
[2022-05-03 18:36] LABS: BILIRUBIN,TOTAL 0.9 mg/dL (0.2-1)
[2022-05-03] MEDS: [UNRECOGNIZED DRUG - OTHER] IVPB SCH (19:27)
[2022-05-03] MEDS: IMMUNE GLOBULIN IVPB SCH (19:27)
[2022-05-03] MEDS ORDERED: IBUPROFEN 400 MG TABLET (FP) PO ONE ×2 (21:50→21:53)
[2022-05-04] MEDS ORDERED: BACLOFEN 10 MG TABLET (FP) PO SCH (03:42)
[2022-05-04 04:03] VITALS: BMI 38.7
[2022-05-04] MEDS ORDERED: ACETAMINOPHEN 325 MG TABLET (FP) PO PRN (04:08)
[2022-05-04] MEDS ORDERED: guaiFENesin 200 MG/10 ML 10 ML UNIT-DOSE CUPS PO PRN (04:08)
[2022-05-04] MEDS: IBUPROFEN 400 MG TABLET (FP) PO PRN (04:15)
[2022-05-04] MEDS: PREGABALIN 75 MG CAPSULE PO SCH ×3 (04:18→21:02)
[2022-05-04] MEDS: ENOXAPARIN NA (PORCINE) 40 MG/0.4 ML DISP.SYRIN SQ SCH (10:29)
[2022-05-04] MEDS: LOSARTAN POTASSIUM 25 MG TABLET PO SCH (10:30)
[2022-05-04] MEDS: predniSONE 20 MG TABLET (UD) PO SCH ×2 (10:30→21:02)
[2022-05-04 11:23] LABS: BASO % 1.2 % (0-2.0); EOS % 0.9 % (0-4.5); HEMATOCRIT 37.6 % (35.4-49); HEMOGLOBIN 12.7 GM/dL (11.7-16.9); LYMPH % 46.8 % (8-40); MCH 31.7 pg (25.7-33.7); MCHC 33.8 g/dl (32.0-35.9); MEAN CELL VOLUME 93.7 fl (80-96); MEAN PLT VOLUME 8.6 fl (7.5-11.1); MONO % 14.5 % (3.8-10.2); NEUT % 36.6 % (42.8-82.8); PLATELET COUNT 126 10^3/uL (134-434); RBC 4.01 M/mm3 (4.00-5.60); RDW 15.8 % (11.9-15.9); WHITE BLOOD COUNT 2.5 K/mm3 (4.0-10.0)
[2022-05-04 11:25] LABS: INR 1.13 (0.83-1.09)
[2022-05-04 11:43] LABS: ALBUMIN 3.4 g/dl (3.4-5.0); CALCIUM 8.5 mg/dL (8.5-10.1)
[2022-05-04 11:44] LABS: MAGNESIUM 1.8 mg/dL (1.8-2.4)
[2022-05-04 11:46] LABS: CREATININE 0.9 mg/dL (0.55-1.3); PHOSPHOROUS 3.1 mg/dL (2.5-4.9)
[2022-05-04 11:48] LABS: BILIRUBIN,TOTAL 1.2 mg/dL (0.2-1); TOT PROT 7.2 g/dl (6.4-8.2)
[2022-05-04] MEDS ORDERED: MAGNESIUM SULF 50% (8.12 MEQ/2 ML-1 GM VIAL) IVPB ONE ×2 (11:49→12:30)
[2022-05-04] MEDS: KCL 10 MEQ IVPB 10 MEQ/100 ML INFUS.BAG IVPB SCH ×2 (13:30→16:37)
[2022-05-04] MEDS: BACLOFEN 10 MG TABLET (FP) PO SCH ×2 (13:30→21:03)
[2022-05-04] MEDS ORDERED: REMDESIVIR 100 MG in SODIUM CHLORIDE 250 ML IVPB SCH (14:30)
[2022-05-04] MEDS ORDERED: REMDESIVIR 200 MG in SODIUM CHLORIDE 250 ML IVPB ONE (16:00)
[2022-05-04 18:32] VITALS: RESP 18
[2022-05-04] MEDS: [UNRECOGNIZED DRUG - OTHER] IVPB SCH (19:32)
[2022-05-04] MEDS: IMMUNE GLOBULIN IVPB SCH (19:32)
[2022-05-04] MEDS: ATORVASTATIN CA 40 MG TABLET (FP) PO SCH (21:03)
[2022-05-05] MEDS: IBUPROFEN 400 MG TABLET (FP) PO PRN ×2 (02:17→21:23)
[2022-05-05] MEDS: BACLOFEN 10 MG TABLET (FP) PO SCH ×3 (05:05→21:22)
[2022-05-05] MEDS: predniSONE 20 MG TABLET (UD) PO SCH ×2 (09:37→21:22)
[2022-05-05] MEDS: PREGABALIN 75 MG CAPSULE PO SCH ×2 (09:37→21:22)
[2022-05-05] MEDS: LOSARTAN POTASSIUM 25 MG TABLET PO SCH (09:37)
[2022-05-05] MEDS: ENOXAPARIN NA (PORCINE) 40 MG/0.4 ML DISP.SYRIN SQ SCH (09:47)
[2022-05-05 11:42] LABS: BASO % 0.6 % (0-2.0); EOS % 0.5 % (0-4.5); HEMATOCRIT 39.6 % (35.4-49); HEMOGLOBIN 13.1 GM/dL (11.7-16.9); LYMPH % 43.5 % (8-40); MCHC 33.1 g/dl (32.0-35.9); MEAN CELL VOLUME 93.7 fl (80-96); MEAN PLT VOLUME 8.7 fl (7.5-11.1); MONO % 8.1 % (3.8-10.2); NEUT % 47.3 % (42.8-82.8); PLATELET COUNT 151 10^3/uL (134-434); RBC 4.22 M/mm3 (4.00-5.60); RDW 15.7 % (11.9-15.9)
[2022-05-05 12:08] LABS: CALCIUM 8.7 mg/dL (8.5-10.1)
[2022-05-05 12:09] LABS: ALBUMIN 3.3 g/dl (3.4-5.0); BLOOD UREA NITROGEN 11.2 mg/dL (7-18); MAGNESIUM 2.1 mg/dL (1.8-2.4)
[2022-05-05 12:11] LABS: BILIRUBIN,TOTAL 0.7 mg/dL (0.2-1); CREATININE 0.9 mg/dL (0.55-1.3)
[2022-05-05 12:12] LABS: PHOSPHOROUS 2.5 mg/dL (2.5-4.9)
[2022-05-05] MEDS: REMDESIVIR 100 MG in SODIUM CHLORIDE 250 ML IVPB SCH (16:37)
[2022-05-05] MEDS: IMMUNE GLOBULIN IVPB SCH (21:22)
[2022-05-05] MEDS: [UNRECOGNIZED DRUG - OTHER] IVPB SCH (21:22)
[2022-05-05] MEDS: ATORVASTATIN CA 40 MG TABLET (FP) PO SCH (21:22)
[2022-05-06] MEDS: BACLOFEN 10 MG TABLET (FP) PO SCH ×2 (05:51→13:02)
[2022-05-06] MEDS: LOSARTAN POTASSIUM 25 MG TABLET PO SCH (10:03)
[2022-05-06] MEDS: PREGABALIN 75 MG CAPSULE PO SCH (10:03)
[2022-05-06] MEDS: predniSONE 20 MG TABLET (UD) PO SCH (10:04)
[2022-05-06] MEDS: ENOXAPARIN NA (PORCINE) 40 MG/0.4 ML DISP.SYRIN SQ SCH (10:18)
[2022-05-06 10:36] LABS: HEMOGLOBIN 13.1 GM/dL (11.7-16.9); MCH 32.1 pg (25.7-33.7); MCHC 34.5 g/dl (32.0-35.9); MEAN PLT VOLUME 8.4 fl (7.5-11.1); PLATELET COUNT 148 10^3/uL (134-434); RBC 4.09 M/mm3 (4.00-5.60); RDW 15.6 % (11.9-15.9); WHITE BLOOD COUNT 4.2 K/mm3 (4.0-10.0)
[2022-05-06 10:54] LABS: ALBUMIN 3.1 g/dl (3.4-5.0); BLOOD UREA NITROGEN 13.6 mg/dL (7-18); CALCIUM 8.5 mg/dL (8.5-10.1); MAGNESIUM 2.1 mg/dL (1.8-2.4)
[2022-05-06 10:57] LABS: CREATININE 0.9 mg/dL (0.55-1.3)
[2022-05-06 10:58] LABS: BILIRUBIN,TOTAL 0.5 mg/dL (0.2-1); TOT PROT 9.2 g/dl (6.4-8.2)
[2022-05-06] MEDS ORDERED: ACETAMINOPHEN 325 MG TABLET (FP) PO PRN (11:40)
[2022-05-06] MEDS ORDERED: IBUPROFEN 400 MG TABLET (FP) PO PRN (11:42)
[2022-05-06] MEDS ORDERED: MAGNESIUM SULF 50% (8.12 MEQ/2 ML-1 GM VIAL) IVPB ONE (12:24)
[2022-05-06] MEDS: REMDESIVIR 100 MG in SODIUM CHLORIDE 250 ML IVPB SCH (17:20)
[2022-05-06 19:05] VITALS: BP 147/90; PULSE 68; TEMP 98.7
[2022-05-07] MEDS ORDERED: predniSONE 20 MG TABLET (UD) PO SCH (10:00)
== END 2022-05-06 21:36 | disposition home or self-care (01) | DRG 178 ==
LOC: JER 15:50 → JERBED 19:14 → J5S 05-04 03:12
PROVIDERS: ADMIT Internal Medicine; ATTEND Internal Medicine
PROC: XW033E5 Introduction of Remdesivir Anti-infective into Peripheral Vein, Percutaneous Approach, New Technology Group 5 (ICD-10-PCS; principal; 2022-05-03)
DX: U07.1 COVID-19 (principal); F33.9 Major depressive disorder, recurrent, unspecified; G61.81 Chronic inflammatory demyelinating polyneuritis; G61.0 Guillain-Barre syndrome; I10 Essential (primary) hypertension; E78.5 Hyperlipidemia, unspecified; G47.33 Obstructive sleep apnea (adult) (pediatric); E66.9 Obesity, unspecified; Z68.38 Body mass index [BMI] 38.0-38.9, adult
CPT/HCPCS: 0241U-QW; 36415; 71045-TC-FY; 80053; 82550; 82553; 83735; 84100; 84484; 85025; 85027; 85610; 86140; 93005; 93010; 94010; 94660; 97116-GP; 97161-GP; 99285-25; C9399; J0475; J1561

== ENCOUNTER 2025-02-22 23:24 | Emergency (ER) | payer SELFPAY ==
[2025-02-22 23:33] VITALS: TEMP 97.9; BMI 38.3
[2025-02-23 00:07] LABS: BG HCT 51.0 % (35.4-49); VENOUS BASE EXCESS 0.0 mmol/L (-2-2); VENOUS O2 SATURATION 75.1 % (70-80); VENOUS PCO2 41.2 mmHg (38-52); VENOUS PH 7.399 (7.310-7.410)
[2025-02-23 00:09] LABS: IMMATURE PLATELET FRACTION # 5.40 x10^3/uL; MCHC 34.4 g/dl (32.3-36.5); MEAN CELL VOLUME 95.6 fl (79.0-92.2); MEAN PLT VOLUME 10.9 fl (9.4-12.4); RDW 12.4 % (12.2-16.1)
[2025-02-23 00:19] LABS: INR 1.26 (0.83-1.09); PROTHROMBIN TIME (PATIENT) 13.9 SEC (9.7-13.0)
[2025-02-23 00:21] LABS: ACTIVATED PTT 44.3 SECONDS (25.2-36.5)
[2025-02-23 00:26] LABS: GLUCOSE,RANDOM 164.0 mg/dL (74-106)
[2025-02-23 00:27] LABS: TOT PROT 8.1 g/dl (6.4-8.2)
[2025-02-23 00:28] LABS: CO2 26.0 mmol/L (21-32)
[2025-02-23 00:29] LABS: ALK PHOS 100.0 U/L (40-150)
[2025-02-23 00:32] LABS: CREATININE 0.81 mg/dL (0.55-1.3); SGOT/AST 111.0 U/L (5-34); SGPT/ALT 125.0 U/L (0-55)
[2025-02-23] MEDS ORDERED: POTASSIUM CHLORIDE ORAL LIQUID 20 MEQ/15 ML ONE (02:52)
[2025-02-23] MEDS: POTASSIUM CHLORIDE TABS 20 MEQ TABLET.ER (FP) PO ONE (03:01)
[2025-02-23] MEDS ORDERED: METHOCARBAMOL 500 MG TABLET ONE (03:32)
[2025-02-23] MEDS ORDERED: KETOROLAC TROMETHAMINE 15 MG/ML VIAL ONE (03:32)
[2025-02-23] MEDS: METHOCARBAMOL 500 MG TABLET PO ONE (03:49)
[2025-02-23] MEDS: KETOROLAC TROMETHAMINE 15 MG/ML VIAL IVPUSH ONE (03:49)
[2025-02-23 03:53] VITALS: BP 162/93; PULSE 61; RESP 20
== END 2025-02-23 04:00 | disposition home or self-care (01) ==
LOC: JER 23:24
PROC: 3E0333Z Introduction of Anti-inflammatory into Peripheral Vein, Percutaneous Approach (ICD-10-PCS; principal; 2025-02-23)
DX: I10 Essential (primary) hypertension (principal); R00.2 Palpitations; R07.89 Other chest pain; R42 Dizziness and giddiness; R61 Generalized hyperhidrosis
CPT/HCPCS: 36415; 71046-TC-FY; 80053; 82803; 83880; 84484; 85027; 85610; 85730; 86850; 86900; 86901; 99285-25